=== PATIENT | male | born 1955 | race Two or more races ===

== ENCOUNTER 2022-10-26 14:07 | Emergency (ER) | payer MEDICARE, MEDICAID ==
[~2022-10-26] VITALS: Ht 172.7 cm; Wt 80.0 kg
[2022-10-26 15:19] VITALS: BP 111/67
== END 2022-10-26 16:23 | disposition home or self-care (01) ==
LOC: ER 14:07
DX: S00.03XA Contusion of scalp, initial encounter (principal); J44.9 Chronic obstructive pulmonary disease, unspecified; W18.09XA Striking against other object with subsequent fall, initial encounter; Y93.89 Activity, other specified; Y92.89 Other specified places as the place of occurrence of the external cause; Y99.8 Other external cause status
CPT/HCPCS: 70450